=== PATIENT | male | born 1975 | race Caucasian/White ===

== ENCOUNTER 2017-01-15 17:46 | Inpatient (IN) | payer MEDICARE, OTHER ==
[~2017-01-15] VITALS: Ht 175.3 cm; Wt 91.0 kg
[2017-01-15] MEDS ORDERED: LISI-662 PO (18:39)
[2017-01-15] MEDS ORDERED: MINO2.5 PO (18:39)
[2017-01-15] MEDS ORDERED: AMLO-512 PO (18:39)
[2017-01-15] MEDS ORDERED: CLON.1 PO (18:39)
[2017-01-15] MEDS ORDERED: CLON.5 PO (18:39)
[2017-01-15] MEDS ORDERED: ROSU10 PO (18:39)
[2017-01-15 19:56] LABS: BASOPHILS % (AUTO) 0.4 % (0.0-2.0); EOSINOPHILS % (AUTO) 3.5 % (1.0-6.0); HEMATOCRIT 23.6 % (41-53); HEMOGLOBIN 7.6 g/dL (13.5-17.5); LYMPHOCYTES % (AUTO) 9.6 % (22.0-44.0); MEAN CORPUSCULAR HEMOGLOBIN 28.6 pg (26.0-34.0); MEAN CORPUSCULAR HGB CONC 32.2 G/dL (31.0-37.0); MEAN CORPUSCULAR VOLUME 89 fL (80-100); MONOCYTES # (AUTO) 0.5 K/uL (0.1-1.0); MONOCYTES % (AUTO) 4.9 % (2.0-9.0); NEUTROPHILS # (AUTO) 8.3 K/uL (1.8-7.7); NEUTROPHILS % (AUTO) 81.6 % (40.0-70.0); PLATELET COUNT (AUTO) 368 K/uL (150-450); RED BLOOD CELL COUNT(AUTO) 2.66 MIL/uL (4.50-5.90); RED CELL DISTRIBUTION WIDTH 19.4 % (11.5-14.5); WHITE BLOOD COUNT (AUTO) 10.2 K/uL (4.5-11.0)
[2017-01-15 20:07] LABS: CALCIUM, TOTAL 8.9 mg/dL (8.8-10.5); CREATININE 4.76 mg/dL (0.60-1.30); POTASSIUM 4.1 mmol/L (3.5-5.1)
[2017-01-15 20:10] LABS: INR 1.1 (0.9-1.1)
[2017-01-15 20:13] LABS: ALBUMIN 3.3 g/dL (3.4-5.0); BILIRUBIN,TOTAL 0.7 mg/dL (0.1-1.0); TOTAL PROTEIN, SERUM 7.4 g/dL (6.4-8.2)
[2017-01-15 21:59] LABS: RBC MORPHOLOGY COMMENT ABNORMAL RBC MORPH
[2017-01-15] MEDS ORDERED: PANTOPRAZOLE SODIUM 80 MG in SODIUM CHLORIDE 0.9% 50 ML IV ONE (23:45)
[2017-01-15] MEDS: PANTOPRAZOLE SODIUM 80 MG in SODIUM CHLORIDE 0.9% 500 ML IV SCH (23:53)
[2017-01-16] VITALS (8 sets, daily range): BP systolic 145–188; BP diastolic 98–116
[2017-01-16] MEDS: PANTOPRAZOLE SODIUM 80 MG in SODIUM CHLORIDE 0.9% 500 ML IV SCH ×3 (00:48→21:54)
[2017-01-16] MEDS ORDERED: GuaiFENesin/D-METHORPHAN [SUGAR-FREE] 200-20MG/10 ML SYRUP UDCUP PO PRN (01:15)
[2017-01-16] MEDS ORDERED: ClonazePAM 0.5 MG TABLET PO PRN ×2 (01:15→01:30)
[2017-01-16] MEDS: ZOLPIDEM TARTRATE 5 MG TABLET PO PRN ×2 (01:51→23:23)
[2017-01-16] MEDS: MINOXIDIL 2.5 MG TABLET PO SCH ×3 (02:08→19:43)
[2017-01-16] MEDS: CloNIDine HCL 0.1 MG TABLET PO SCH ×3 (02:08→19:42)
[2017-01-16] MEDS ORDERED: PNEUMOCOCCAL VACCINE POLYVALENT 0.5 ML VIAL [PPSV23] IM ONE (02:45)
[2017-01-16] MEDS: HydrALAZINE HCL 25 MG TABLET PO PRN ×2 (05:45→19:42)
[2017-01-16 06:23] LABS: CALCIUM, TOTAL 8.3 mg/dL (8.8-10.5); CREATININE 6.61 mg/dL (0.60-1.30); POTASSIUM 5.3 mmol/L (3.5-5.1)
[2017-01-16 06:47] LABS: BASOPHILS # (AUTO) 0.07 K/uL (0.00-0.20); BASOPHILS % (AUTO) 0.7 % (0.0-2.0); EOSINOPHILS # (AUTO) 0.25 K/uL (0.00-0.70); EOSINOPHILS % (AUTO) 2.61 % (1.0-6.0); HEMATOCRIT 21.9 % (41-53); HEMOGLOBIN 7.3 g/dL (13.5-17.5); LYMPHOCYTES # (AUTO) 0.9 K/uL (1.0-4.8); LYMPHOCYTES % (AUTO) 9.7 % (22.0-44.0); MEAN CORPUSCULAR HEMOGLOBIN 29.5 pg (26.0-34.0); MEAN CORPUSCULAR HGB CONC 33.4 G/dL (31.0-37.0); MEAN CORPUSCULAR VOLUME 88 fL (80-100); MONOCYTES # (AUTO) 0.5 K/uL (0.1-1.0); MONOCYTES % (AUTO) 4.6 % (2.0-9.0); NEUTROPHILS % (AUTO) 82.5 % (40.0-70.0); PLATELET COUNT (AUTO) 345 K/uL (150-450); RED BLOOD CELL COUNT(AUTO) 2.48 MIL/uL (4.50-5.90); RED CELL DISTRIBUTION WIDTH 19.6 % (11.5-14.5); WHITE BLOOD COUNT (AUTO) 9.7 K/uL (4.5-11.0)
[2017-01-16] MEDS ORDERED: 0.9% SODIUM CHLORIDE 10 ML SYRINGE IVP PRN (07:00)
[2017-01-16] MEDS ORDERED: ONDANSETRON HCL 4 MG/2 ML VIAL IVP PRN (07:00)
[2017-01-16] MEDS ORDERED: OxyCODONE HCL/ACETAMINOPHEN 5-325 MG TABLET PO PRN ×2 (07:00)
[2017-01-16] MEDS: AmLODIPine BESYLATE 10 MG TABLET PO SCH (08:41)
[2017-01-16] MEDS: LISINOPRIL 20 MG TABLET PO SCH (08:41)
[2017-01-16] MEDS: DOCUSATE SODIUM 100 MG CAPSULE PO SCH ×2 (08:41→19:42)
[2017-01-16 11:53] LABS: RBC MORPHOLOGY COMMENT ABNORMAL RBC MORPH
[2017-01-16] MEDS: ROSUVASTATIN CALCIUM 10 MG TABLET PO SCH (19:42)
[2017-01-16] MEDS: ClonazePAM 0.5 MG TABLET PO PRN (23:22)
[2017-01-17] VITALS (12 sets, daily range): BP systolic 155–188; BP diastolic 89–112
[2017-01-17 06:05] LABS: BASOPHILS % (AUTO) 0.6 % (0.0-2.0); EOSINOPHILS % (AUTO) 3.2 % (1.0-6.0); LYMPHOCYTES % (AUTO) 11.2 % (22.0-44.0); MEAN CORPUSCULAR HEMOGLOBIN 28.6 pg (26.0-34.0); MEAN CORPUSCULAR HGB CONC 31.9 G/dL (31.0-37.0); MEAN CORPUSCULAR VOLUME 89 fL (80-100); MONOCYTES # (AUTO) 0.5 K/uL (0.1-1.0); NEUTROPHILS # (AUTO) 7.3 K/uL (1.8-7.7); PLATELET COUNT (AUTO) 301 K/uL (150-450); RED BLOOD CELL COUNT(AUTO) 2.35 MIL/uL (4.50-5.90); RED CELL DISTRIBUTION WIDTH 18.9 % (11.5-14.5); WHITE BLOOD COUNT (AUTO) 9.1 K/uL (4.5-11.0)
[2017-01-17 06:16] LABS: CALCIUM, TOTAL 8.3 mg/dL (8.8-10.5); CREATININE 8.58 mg/dL (0.60-1.30); POTASSIUM 5.3 mmol/L (3.5-5.1)
[2017-01-17 06:56] LABS: HEMOGLOBIN 6.7 g/dL (13.5-17.5)
[2017-01-17] MEDS: AmLODIPine BESYLATE 10 MG TABLET PO SCH (08:23)
[2017-01-17] MEDS: MINOXIDIL 2.5 MG TABLET PO SCH ×2 (08:23→20:03)
[2017-01-17] MEDS: PANTOPRAZOLE SODIUM 80 MG in SODIUM CHLORIDE 0.9% 500 ML IV SCH (08:23)
[2017-01-17] MEDS: CloNIDine HCL 0.1 MG TABLET PO SCH ×2 (08:23→20:03)
[2017-01-17] MEDS: DOCUSATE SODIUM 100 MG CAPSULE PO SCH ×2 (08:23→20:04)
[2017-01-17] MEDS: LISINOPRIL 20 MG TABLET PO SCH (08:24)
[2017-01-17 09:28] LABS: RBC MORPHOLOGY COMMENT ABNORMAL RBC MORPH
[2017-01-17] MEDS ORDERED: SODIUM CHLORIDE 0.9% 1,000 ML IV ONE ×3 (10:27→13:30)
[2017-01-17] MEDS ORDERED: MANNITOL 25%-12.5 GM/50 ML VIAL IVP PRN ×2 (12:00→12:30)
[2017-01-17] MEDS ORDERED: ACETAMINOPHEN 325 MG TABLET PO ONE (13:00)
[2017-01-17] MEDS ORDERED: DiphenhydrAMINE HCL 25 MG CAPSULE PO ONE (13:00)
[2017-01-17] MEDS ORDERED: DiphenhydrAMINE HCL 50 MG/ML VIAL IVP ONE (13:15)
[2017-01-17] MEDS ORDERED: FentaNYL CITRATE-PF 100 MCG/2 ML VIAL IVP PRN (15:45)
[2017-01-17] MEDS ORDERED: HYDROmorphone 2 MG/ML SYRINGE IVP PRN (15:45)
[2017-01-17] MEDS ORDERED: MEPERIDINE-PF 25 MG/ML SYRINGE IVP PRN (15:45)
[2017-01-17] MEDS ORDERED: SODIUM CHLORIDE 0.9% 500 ML IV ONE (16:44)
[2017-01-17] MEDS ORDERED: DiphenhydrAMINE HCL 50 MG/ML VIAL IM ONE (17:58)
[2017-01-17] MEDS ORDERED: HEPARIN SODIUM,PORCINE 5,000 UNITS/ML VIAL SQ ONE (17:58)
[2017-01-17] MEDS: OXYGEN THERAPY IH SCH (20:03)
[2017-01-17] MEDS: ROSUVASTATIN CALCIUM 10 MG TABLET PO SCH (20:04)
[2017-01-18] MEDS: ZOLPIDEM TARTRATE 5 MG TABLET PO PRN (01:19)
[2017-01-18 04:53] VITALS: BP 156/93
[2017-01-18 06:12] LABS: BASOPHILS % (AUTO) 0.7 % (0.0-2.0); EOSINOPHILS % (AUTO) 3.3 % (1.0-6.0); HEMATOCRIT 24.6 % (41-53); LYMPHOCYTES # (AUTO) 1.1 K/uL (1.0-4.8); LYMPHOCYTES % (AUTO) 11.6 % (22.0-44.0); MEAN CORPUSCULAR HEMOGLOBIN 28.9 pg (26.0-34.0); MEAN CORPUSCULAR HGB CONC 32.7 G/dL (31.0-37.0); MEAN CORPUSCULAR VOLUME 88 fL (80-100); MONOCYTES # (AUTO) 0.5 K/uL (0.1-1.0); MONOCYTES % (AUTO) 4.7 % (2.0-9.0); NEUTROPHILS # (AUTO) 7.7 K/uL (1.8-7.7); NEUTROPHILS % (AUTO) 79.7 % (40.0-70.0); PLATELET COUNT (AUTO) 305 K/uL (150-450); RED BLOOD CELL COUNT(AUTO) 2.78 MIL/uL (4.50-5.90); RED CELL DISTRIBUTION WIDTH 17.6 % (11.5-14.5); WHITE BLOOD COUNT (AUTO) 9.7 K/uL (4.5-11.0)
[2017-01-18 06:34] LABS: CALCIUM, TOTAL 8.5 mg/dL (8.8-10.5); CREATININE 6.77 mg/dL (0.60-1.30); POTASSIUM 5.5 mmol/L (3.5-5.1)
[2017-01-18 07:16] VITALS: BP 139/97
[2017-01-18] MEDS: PANTOPRAZOLE SODIUM 40 MG/VIAL IVP SCH (08:59)
[2017-01-18] MEDS: DOCUSATE SODIUM 100 MG CAPSULE PO SCH ×3 (09:00→20:43)
[2017-01-18] MEDS: LISINOPRIL 20 MG TABLET PO SCH ×2 (09:00→14:52)
[2017-01-18] MEDS: CloNIDine HCL 0.1 MG TABLET PO SCH ×3 (09:00→20:43)
[2017-01-18] MEDS: MINOXIDIL 2.5 MG TABLET PO SCH ×3 (09:00→20:43)
[2017-01-18] MEDS: AmLODIPine BESYLATE 10 MG TABLET PO SCH ×2 (09:00→15:44)
[2017-01-18] MEDS: OXYGEN THERAPY IH SCH ×2 (09:00→20:00)
[2017-01-18 15:12] VITALS: BP 185/111
[2017-01-18] MEDS: HydrALAZINE HCL 25 MG TABLET PO PRN (15:44)
[2017-01-18 16:45] VITALS: BP 155/90
[2017-01-18 20:35] VITALS: BP 175/103
[2017-01-18] MEDS: ROSUVASTATIN CALCIUM 10 MG TABLET PO SCH (20:45)
[2017-01-19] VITALS (7 sets, daily range): BP systolic 145–165; BP diastolic 83–106
[2017-01-19] MEDS: ZOLPIDEM TARTRATE 5 MG TABLET PO PRN (00:51)
[2017-01-19] MEDS: OXYGEN THERAPY IH SCH (08:00)
[2017-01-19] MEDS: PANTOPRAZOLE SODIUM 40 MG/VIAL IVP SCH (08:03)
[2017-01-19] MEDS: DOCUSATE SODIUM 100 MG CAPSULE PO SCH ×2 (08:03→20:35)
[2017-01-19] MEDS: ClonazePAM 0.5 MG TABLET PO PRN (08:03)
[2017-01-19] MEDS: CloNIDine HCL 0.1 MG TABLET PO SCH ×2 (08:03→20:35)
[2017-01-19] MEDS: MINOXIDIL 2.5 MG TABLET PO SCH ×2 (08:03→20:35)
[2017-01-19] MEDS: AmLODIPine BESYLATE 10 MG TABLET PO SCH (08:04)
[2017-01-19] MEDS: LISINOPRIL 20 MG TABLET PO SCH (08:05)
[2017-01-19 10:15] LABS: BASOPHILS % (AUTO) 0.6 % (0.0-2.0); EOSINOPHILS % (AUTO) 2.9 % (1.0-6.0); HEMATOCRIT 23.1 % (41-53); HEMOGLOBIN 7.4 g/dL (13.5-17.5); LYMPHOCYTES # (AUTO) 0.7 K/uL (1.0-4.8); LYMPHOCYTES % (AUTO) 9.1 % (22.0-44.0); MEAN CORPUSCULAR HEMOGLOBIN 28.3 pg (26.0-34.0); MEAN CORPUSCULAR HGB CONC 32.2 G/dL (31.0-37.0); MEAN CORPUSCULAR VOLUME 88 fL (80-100); MONOCYTES # (AUTO) 0.4 K/uL (0.1-1.0); NEUTROPHILS % (AUTO) 82.4 % (40.0-70.0); PLATELET COUNT (AUTO) 285 K/uL (150-450); RED BLOOD CELL COUNT(AUTO) 2.62 MIL/uL (4.50-5.90); RED CELL DISTRIBUTION WIDTH 17.7 % (11.5-14.5); WHITE BLOOD COUNT (AUTO) 7.3 K/uL (4.5-11.0)
[2017-01-19 11:50] LABS: RBC MORPHOLOGY COMMENT ABNORMAL RBC MORPH
[2017-01-19] MEDS: ROSUVASTATIN CALCIUM 10 MG TABLET PO SCH (20:35)
[2017-01-20] VITALS (7 sets, daily range): BP systolic 151–169; BP diastolic 78–103
[2017-01-20] MEDS: AmLODIPine BESYLATE 10 MG TABLET PO SCH (10:14)
[2017-01-20] MEDS: DOCUSATE SODIUM 100 MG CAPSULE PO SCH ×2 (10:14→20:02)
[2017-01-20] MEDS: PANTOPRAZOLE SODIUM 40 MG/VIAL IVP SCH (10:14)
[2017-01-20] MEDS ORDERED: PROPOFOL 1% 20 ML VIAL IVP ONE (12:00)
[2017-01-20 15:26] LABS: BASOPHILS % (AUTO) 0.4 % (0.0-2.0); EOSINOPHILS % (AUTO) 2.3 % (1.0-6.0); HEMATOCRIT 22.3 % (41-53); HEMOGLOBIN 7.4 g/dL (13.5-17.5); LYMPHOCYTES # (AUTO) 0.8 K/uL (1.0-4.8); LYMPHOCYTES % (AUTO) 11.2 % (22.0-44.0); MEAN CORPUSCULAR HEMOGLOBIN 29.1 pg (26.0-34.0); MEAN CORPUSCULAR HGB CONC 33.1 G/dL (31.0-37.0); MEAN CORPUSCULAR VOLUME 88 fL (80-100); MONOCYTES # (AUTO) 0.3 K/uL (0.1-1.0); MONOCYTES % (AUTO) 4.8 % (2.0-9.0); NEUTROPHILS # (AUTO) 5.7 K/uL (1.8-7.7); NEUTROPHILS % (AUTO) 81.3 % (40.0-70.0); PLATELET COUNT (AUTO) 290 K/uL (150-450); RED BLOOD CELL COUNT(AUTO) 2.54 MIL/uL (4.50-5.90); RED CELL DISTRIBUTION WIDTH 16.9 % (11.5-14.5); WHITE BLOOD COUNT (AUTO) 7.1 K/uL (4.5-11.0)
[2017-01-20] MEDS: MINOXIDIL 2.5 MG TABLET PO SCH ×2 (16:41→20:02)
[2017-01-20] MEDS: CloNIDine HCL 0.1 MG TABLET PO SCH ×2 (16:41→20:02)
[2017-01-20] MEDS: LISINOPRIL 20 MG TABLET PO SCH (16:42)
[2017-01-20] MEDS ORDERED: PEG 3350/NA SULF,BICARB,CL/KCL 4000 ML SOLUTION PO ONE (17:30)
[2017-01-20] MEDS: ROSUVASTATIN CALCIUM 10 MG TABLET PO SCH (20:02)
[2017-01-20] MEDS: HydrALAZINE HCL 25 MG TABLET PO PRN (21:18)
[2017-01-21 04:41] VITALS: BP 161/99
[2017-01-21 07:32] VITALS: BP 154/90
[2017-01-21] MEDS ORDERED: EPOETIN ALFA 10,000 UNITS/ML VIAL SQ SCH (09:00)
[2017-01-21] MEDS: PANTOPRAZOLE SODIUM 40 MG/VIAL IVP SCH (09:19)
[2017-01-21 11:03] VITALS: BP 162/86
[2017-01-21] MEDS ORDERED: SODIUM CHLORIDE 0.9% 1,000 ML IV ONE ×2 (12:39→13:30)
[2017-01-21] MEDS ORDERED: LABETALOL HCL 5 MG/ML 20 ML VIAL IVP PRN (14:30)
[2017-01-21] MEDS ORDERED: LABETALOL HCL 5 MG/ML 20 ML VIAL IVP ONE (14:37)
[2017-01-21] MEDS: CloNIDine HCL 0.1 MG TABLET PO SCH ×2 (16:06→20:10)
[2017-01-21] MEDS: ClonazePAM 0.5 MG TABLET PO PRN (16:06)
[2017-01-21] MEDS: MINOXIDIL 2.5 MG TABLET PO SCH ×2 (16:06→20:10)
[2017-01-21] MEDS: LISINOPRIL 20 MG TABLET PO SCH (16:07)
[2017-01-21] MEDS: DOCUSATE SODIUM 100 MG CAPSULE PO SCH ×2 (16:07→20:09)
[2017-01-21] MEDS: AmLODIPine BESYLATE 10 MG TABLET PO SCH (16:07)
[2017-01-21 17:30] VITALS: BP 146/86
[2017-01-21 19:26] VITALS: BP 137/86
[2017-01-21] MEDS: OXYGEN THERAPY IH SCH ×4 (20:00→20:16)
[2017-01-21] MEDS: ROSUVASTATIN CALCIUM 10 MG TABLET PO SCH (20:09)
[2017-01-21 23:47] VITALS: BP 139/88
[2017-01-22 05:09] VITALS: BP 162/88
[2017-01-22 07:25] LABS: BASOPHILS % (AUTO) 0.4 % (0.0-2.0); EOSINOPHILS % (AUTO) 2.2 % (1.0-6.0); HEMOGLOBIN 7.3 g/dL (13.5-17.5); LYMPHOCYTES # (AUTO) 0.9 K/uL (1.0-4.8); MEAN CORPUSCULAR HEMOGLOBIN 28.2 pg (26.0-34.0); MEAN CORPUSCULAR HGB CONC 31.9 G/dL (31.0-37.0); MEAN CORPUSCULAR VOLUME 89 fL (80-100); MONOCYTES # (AUTO) 0.4 K/uL (0.1-1.0); MONOCYTES % (AUTO) 5.4 % (2.0-9.0); NEUTROPHILS # (AUTO) 5.3 K/uL (1.8-7.7); PLATELET COUNT (AUTO) 298 K/uL (150-450); RED CELL DISTRIBUTION WIDTH 17.1 % (11.5-14.5); WHITE BLOOD COUNT (AUTO) 6.8 K/uL (4.5-11.0)
[2017-01-22 07:26] LABS: RBC MORPHOLOGY COMMENT ABNORMAL RBC MORPH
[2017-01-22 07:53] VITALS: BP 153/85
[2017-01-22] MEDS: OXYGEN THERAPY IH SCH (08:00)
[2017-01-22] MEDS: PANTOPRAZOLE SODIUM 40 MG/VIAL IVP SCH (08:35)
[2017-01-22] MEDS: DOCUSATE SODIUM 100 MG CAPSULE PO SCH (09:10)
[2017-01-22] MEDS: LISINOPRIL 20 MG TABLET PO SCH (09:10)
[2017-01-22] MEDS: AmLODIPine BESYLATE 10 MG TABLET PO SCH (09:10)
[2017-01-22] MEDS: ClonazePAM 0.5 MG TABLET PO PRN (09:11)
[2017-01-22] MEDS: CloNIDine HCL 0.1 MG TABLET PO SCH ×2 (09:11→16:00)
[2017-01-22] MEDS: MINOXIDIL 2.5 MG TABLET PO SCH (09:15)
[2017-01-22 11:21] VITALS: BP 165/97
[2017-01-22] MEDS ORDERED: MANNITOL 25%-12.5 GM/50 ML VIAL IVP PRN (13:15)
[2017-01-22] MEDS ORDERED: SODIUM CHLORIDE 0.9% 100 ML ONE (14:09)
[2017-01-22 17:41] VITALS: BP 136/101
== END 2017-01-22 18:30 | disposition home or self-care (01) | DRG 377 ==
LOC: EMS 17:48 → 6N 23:53
PROVIDERS: ADMIT Internal Medicine; ATTEND Internal Medicine
PROC: 0DB68ZX Excision of Stomach, Via Natural or Artificial Opening Endoscopic, Diagnostic (ICD-10-PCS; 2017-01-17)
PROC: 0DB38ZX Excision of Lower Esophagus, Via Natural or Artificial Opening Endoscopic, Diagnostic (ICD-10-PCS; 2017-01-17)
PROC: 5A1D60Z (ICD-10-PCS; 2017-01-17)
PROC: 30233N1 Transfusion of Nonautologous Red Blood Cells into Peripheral Vein, Percutaneous Approach (ICD-10-PCS; 2017-01-17)
PROC: 0DB98ZX Excision of Duodenum, Via Natural or Artificial Opening Endoscopic, Diagnostic (ICD-10-PCS; principal; 2017-01-17 15:00)
PROC: 0DJD8ZZ Inspection of Lower Intestinal Tract, Via Natural or Artificial Opening Endoscopic (ICD-10-PCS; 2017-01-21)
DX: K92.2 Gastrointestinal hemorrhage, unspecified (principal); N18.6 End stage renal disease; E43 Unspecified severe protein-calorie malnutrition; I12.0 Hypertensive chronic kidney disease with stage 5 chronic kidney disease or end stage renal disease; D62 Acute posthemorrhagic anemia; E87.70 Fluid overload, unspecified; K21.9 Gastro-esophageal reflux disease without esophagitis; F17.200 Nicotine dependence, unspecified, uncomplicated; K29.60 Other gastritis without bleeding; K22.70 Barrett's esophagus without dysplasia; K29.80 Duodenitis without bleeding; K57.30 Diverticulosis of large intestine without perforation or abscess without bleeding; K64.8 Other hemorrhoids; D63.8 Anemia in other chronic diseases classified elsewhere; E78.5 Hyperlipidemia, unspecified; E87.5 Hyperkalemia; F41.9 Anxiety disorder, unspecified; Z99.2 Dependence on renal dialysis; Z79.899 Other long term (current) drug therapy; Z68.29 Body mass index [BMI] 29.0-29.9, adult; Z91.19 Patient's noncompliance with other medical treatment and regimen; Z87.442 Personal history of urinary calculi; Z83.3 Family history of diabetes mellitus
CPT/HCPCS: 82271; 83540; 83550; 86850; 86900; 86901; 86920; 87081; 88305; 88312; 90935; 93005; 96365; 99285; C9113; J0885; J1200; J1644; J2704; J3490; J7030; J7040; J7050; P9016